=== PATIENT | male | born 1980 | race Two or more races ===

== ENCOUNTER 2024-03-19 14:51 | Emergency (ER) | payer OTHER ==
[~2024-03-19] VITALS: Ht 172.7 cm; Wt 65.8 kg
[2024-03-19] MEDS ORDERED: GUAIFENESIN 200 MG/10 ML BLIST.PACK PO STA (16:35)
[2024-03-19] MEDS ORDERED: GUAIFENESIN 200 MG/10 ML BLIST.PACK PO ONE (17:01)
[2024-03-19 17:40] LABS: HEMATOCRIT 46.1 % (39.0-48.0); HEMOGLOBIN 15.8 g/dL (13-16.00); MEAN CELL VOLUME 87.7 fL (80.0-100.00); MEAN CORPUSCULAR HEMOGLOBIN 30.1 pg (27.00-32.0); MEAN CORPUSCULAR HGB CONC 34.3 g/dl (32.0-36.0); RED BLOOD COUNT 5.25 M/uL (4.00-6.00); RED CELL DISTRIBUTION WIDTH 13.4 % (11.5-14.5)
[2024-03-19 17:47] LABS: PLATELET COUNT 99 K/uL (150-450)
[2024-03-19] MEDS ORDERED: 0.9 % SODIUM CHLORIDE 500 ML IV STA (18:19)
[2024-03-19] MEDS ORDERED: ACETAMINOPHEN 325 MG TABLET PO STA (18:20)
[2024-03-19] MEDS ORDERED: ACETAMINOPHEN 500 MG GEL..CAP PO ONE (18:52)
[2024-03-19 20:16] LABS: INR 1.01; PARTIAL THROMBOPLASTIN TIME 31.6 SECONDS (22.0-34.0); PROTHROMBIN TIME 10.6 SECONDS (9.0-11.5)
[2024-03-19 20:27] LABS: BILIRUBIN TOTAL 0.51 mg/dL (0.3-1.2); CREATININE SERUM 0.83 mg/dL (0.70-1.30); GFR 101.12; GLOBULINA 3.7 G/DL (2.4-3.5); POTASSIUM 4.3 mEq/L (3.5-5.1); TOTAL PROTEIN 7.7 gm/dL (6.4-8.2)
== END 2024-03-19 21:15 | disposition home or self-care (01) ==
LOC: ER 14:53
PROVIDERS: General Practice
DX: A90 Dengue fever [classical dengue] (principal); Z20.822 Contact with and (suspected) exposure to COVID-19; Z88.8 Allergy status to other drugs, medicaments and biological substances